=== PATIENT | female | born 1955 | race Caucasian/White ===

== ENCOUNTER 2017-09-12 09:31 | Emergency (ER) | payer OTHER ==
[2017-09-12] MEDS ORDERED: ACETAMINOPHEN 500 MG TABLET (FP) PO ONE (09:46)
[2017-09-12 09:47] VITALS: BP 170/82; PULSE 64; TEMP 98.6; BMI 33.3
[2017-09-12] MEDS ORDERED: diazePAM 5 MG TABLET PO ONE (09:47)
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
[2017-09-12] MEDS ORDERED: ACETAMINOPHEN 325 MG TABLET (FP) ONE (09:52)
[2017-09-12] MEDS ORDERED: diazePAM 5 MG TABLET ONE (09:53)
== END 2017-09-12 13:01 | disposition home or self-care (01) ==
LOC: JER 09:31
DX: M54.2 Cervicalgia (principal); V43.52XA Car driver injured in collision with other type car in traffic accident, initial encounter; Y93.89 Activity, other specified; Y92.412 Parkway as the place of occurrence of the external cause; I10 Essential (primary) hypertension
CPT/HCPCS: 70450-TC; 71046-TC-FY; 72125-TC; 99283-25